=== PATIENT | male | born 1985 | race Hispanic/Latino ===

== ENCOUNTER 2018-06-09 01:28 | Emergency (ER) | payer OTHER ==
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
[2018-06-09] MEDS ORDERED: Amoxicillin-Clav 875-125 mg Tab PO STA (01:43)
[2018-06-09 03:06] VITALS: BP 131/75; PULSE 88; RESP 18; TEMP 98.9; O2SAT 100
--- NOTE | 2018-06-09 08:43 | RAD ---
Date of service: 06/09/2018 PROCEDURE: Right Wrist Radiographs. HISTORY: injury COMPARISON: None. FINDINGS: BONES: Bone alignment and mineralization are normal. There is no acute displaced fracture or bone destruction. JOINTS: Normal. No dislocation. SOFT TISSUES: Normal. OTHER FINDINGS: None. IMPRESSION: No acute fracture or dislocation.
--- NOTE | 2018-06-09 08:54 | RAD ---
PROCEDURE: Right Hand Radiographs. HISTORY: Injury COMPARISON: None. FINDINGS: BONES: Bone alignment and mineralization are normal. There is no acute displaced fracture or bone destruction. JOINTS: Normal. SOFT TISSUES: Normal. OTHER FINDINGS: None. IMPRESSION: No acute fracture or dislocation.
== END 2018-06-09 02:55 | disposition home or self-care (01) ==
LOC: ED 01:28
DX: S60.511A Abrasion of right hand, initial encounter (principal); X58.XXXA Exposure to other specified factors, initial encounter; Y92.89 Other specified places as the place of occurrence of the external cause; Y99.8 Other external cause status